=== PATIENT | female | born 1960 ===

== ENCOUNTER 2018-05-25 23:52 | Emergency (ER) | payer SELFPAY ==
[2018-05-26 00:34] VITALS: TEMP 97.5
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
[2018-05-26] MEDS ORDERED: Naproxen 500 MG TAB PO STA (01:27)
[2018-05-26] MEDS ORDERED: Naproxen 500 MG TAB PO ONE (01:29)
[2018-05-26 02:35] VITALS: BP 132/84; PULSE 85; RESP 16; O2SAT 100
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
== END 2018-05-26 02:38 | disposition home or self-care (01) ==
LOC: H.ER 23:52
DX: M25.561 Pain in right knee (principal); V43.62XA Car passenger injured in collision with other type car in traffic accident, initial encounter; Y92.410 Unspecified street and highway as the place of occurrence of the external cause; E78.00 Pure hypercholesterolemia, unspecified; I10 Essential (primary) hypertension